=== PATIENT | male | born 1955 | race Caucasian/White ===

== ENCOUNTER → 2016-08-01 | Outpatient (CLI) | payer BC ==
--- NOTE | 2016-08-03 07:09 | XR ---
EXAMINATION TYPE: XR knee complete LT DATE OF EXAM: 08/01/2016 5:13 PM COMPARISON: NONE HISTORY: 60-year-old male left knee pain for several weeks, M25.562. TECHNIQUE: 3 views FINDINGS: There is meniscal chondrocalcinosis and some synovial based calcification as well and subtle calcific ation at the quadriceps insertion. There is underlying knee joint effusion without acute fracture, bettencourt bluxation, or dislocation. IMPRESSION: 1. Meniscal chondrocalcinosis with synovial based calcification and some calcification at the quadric eps tendon insertion as well. Correlate for possible gout or CPPD. 2. Moderate knee joint effusion. Arthrocentesis with fluid analysis including crystals can be conside red. 3. If concern for internal arrangement, MRI can be performed.
== END | disposition home or self-care (01) ==
LOC: RADXRYALE 16:53
PROVIDERS: ATTEND Physician Assistant Medical
DX: M11.262 Other chondrocalcinosis, left knee (principal); M25.462 Effusion, left knee

== ENCOUNTER → 2018-02-11 | Outpatient (CLI) | payer OTHER ==
--- NOTE | 2018-02-11 13:39 | XR ---
EXAMINATION TYPE: XR shoulder complete LT DATE OF EXAM: 02/11/2018 CLINICAL HISTORY: Shoulder pain for 3 to 5 months. No stated injury. TECHNIQUE: Three views of the left shoulder are obtained. COMPARISON: None. FINDINGS: There is no acute fracture/dislocation evident in the left shoulder. There is capsular hyp ertrophy and small marginal osteophytes of the acromioclavicular joint relating to mild acromioclavic ular arthropathy. No significant narrowing of the glenohumeral joint is seen. No suspicious osseous l esion. The visualized ribs are intact and unremarkable. IMPRESSION: There is no acute fracture or dislocation in the left shoulder. Mild left acromioclavicu lar arthropathy.
== END ==
LOC: RADXRMAIN 13:09
PROVIDERS: ATTEND Emergency Medicine
DX: M19.012 Primary osteoarthritis, left shoulder (principal)

== ENCOUNTER → 2018-02-24 | Outpatient (CLI) | payer OTHER ==
--- NOTE | 2018-02-26 07:09 | MR ---
EXAMINATION TYPE: MR shoulder LT wo con DATE OF EXAM: 02/24/2018 COMPARISON: Radiograph 02/11/2018 HISTORY: 62-year-old male Left shoulder pain TECHNIQUE: Multiplanar, multisequence imaging of the left shoulder is performed without contrast. FINDINGS: The long head biceps tendon at the junction of the intracapsular and extracapsular portions is thicke daphnie with intermediate signal compatible with tendinosis. The extracapsular portion remains appropriat bernadine situated along the bicipital groove. There is mild tenosynovial fluid noted. Heterogeneous signal of the subscapularis tendon with an 8 x 8 mm intrasubstance tear involving the m iddle third fibers at the footprint. The majority of the subscapularis tendon remains intact. Moderate degenerative joint space narrowing with marginal spurring and capsular hypertrophy at the ac romioclavicular joint. Mild heterogeneity of the supraspinatus and infraspinatus tendons. There is mild bursal sided fraying of the supraspinatus tendon but no high-grade partial or full thickness tear of either supraspinatus or infraspinatus tendons. No atrophy of the rotator cuff musculature. Trace fluid within the subacromial/subdeltoid bursa. There is a tear of the superior labrum extending from just behind the biceps anchor. The tear extends back around likely 180 degrees to the inferior labrum where a 7 mm paralabral cyst is demonstrated. Mild irregular cartilage thinning along the posterior glenoid with underlying subchondral cystic cifuentes ge. No significant glenohumeral joint effusion. No Hill-Sachs deformity or os acromiale. No suspicious bone marrow replacement. IMPRESSION: 1. Rotator cuff tendinosis greatest within the subscapularis tendon where an 8 mm intrasubstance tear is present involving the middle third fibers. The majority of the tendon remains intact. No high-gra de partial or full-thickness rotator cuff tear. 2. Superior labral tear extending back and around by 180 degrees to the inferior labrum where a 7 mm paralabral cyst present. 3. Mild glenohumeral joint OA. 4. Moderate AC joint OA.
== END | disposition home or self-care (01) ==
LOC: RADMRIMAIN 12:48
PROVIDERS: ATTEND Emergency Medicine
DX: S46.812D Strain of other muscles, fascia and tendons at shoulder and upper arm level, left arm, subsequent encounter (principal); S43.492D Other sprain of left shoulder joint, subsequent encounter; M19.012 Primary osteoarthritis, left shoulder; M75.82 Other shoulder lesions, left shoulder; M25.812 Other specified joint disorders, left shoulder